=== PATIENT | male | born 1990 | race Caucasian/White ===

== ENCOUNTER 2020-02-07 12:22 | Emergency (ER) | payer BC, SELFPAY ==
[2020-02-07 12:23] VITALS: BP 122/73; PULSE 82; RESP 20; O2SAT 98
[2020-02-07 12:28] VITALS: BP 122/73; PULSE 86; RESP 17; TEMP 37.2; O2SAT 99; BMI 26.9
--- NOTE | 2020-02-07 12:29 | HMH.EDEXTP ---
ED Disposition Clinical Impression: Toe injury Qualifiers: Encounter type: initial encounter Laterality: right Qualified Code(s): S99.921A - Unspecified injury of right foot, initial encounter Disposition: Home, Self-Care Condition on Discharge: Good Instructions: DI for Toe Sprain Referrals: Jared Thompson MD [Staff Physician] - 3 days - Critical Care Critical Care Time: No Attestation: On , the high probability of a clinically significant, sudden or life threatening deterioration of the following system(s) required my full and direct attention, intervention and personal management. The time I documented below is in addition to time spent performing reported procedures but includes the following listed in this critical care notation. Medical Decision Making - Medical Records Medical records reviewed: Yes: I reviewed the patient's medical records. - David Inquiry Pt receiving controlled substance: No Vital Signs: 02/07/20 12:23 02/07/20 12:28 Temperature 98.9 F Temperature Source Oral Pulse Rate [Right Radial] 82 86 Respiratory Rate 20 17 Blood Pressure [Right Arm] 122/73 122/73 Blood Pressure Mean [Right Arm] 89 89 Blood Pressure Source [Right Arm] Automatic Cuff Blood Pressure Position [Right Arm] Sitting 02 Sat by Pulse Oximetry 98 99 Oxygen Delivery Method Room Air Orders (Tests/Meds): ORDERS Category Date Time Status Foot XR right minimum 3 views [XR foot RT min 3V] Stat Exams 02/07/20 12:30 Taken - Radiology Data #1 Image(s): Foot/Toes Image Reviewed: Yes I reviewed the patient's radiology image Preliminary Findings: No Fracture Seen Medical Decision Narrative: No fracture of the right foot/great toe. Given ibuprofen here and recommended RICE therapy, f/u with PCP next week if symptoms are not improving. Return to the emergency department for worsening swelling, numbness, acute new concerns. Extremity Problem HPI - General Stated complaint: AO hit wall injured R foot/toe 02/06/20 Time Seen by Provider: 02/07/20 12:29 Mode of Arrival: Ambulatory Source of Information: Patient Limitations: No Limitations - History of Present Illness HPI Narrative: 30-year-old male with no significant past medical history who presents to the emergency department for pain in the right great toe since yesterday evening when he hit it on a wall. He tried ice, but continued to have pain, swelling and bruising this morning. Pain is worse with ambulation. - Related Data Previous Rx's Medication Instructions Recorded cephalexin 500 mg capsule 500 mg PO Q12H 10 Days #20 cap 05/11/19 Allergies Allergy/AdvReac Type Severity Reaction Status Date / Time INGREDIENT: NO KNOWN - NO Allergy Unknown Uncoded 10/09/17 12:34 KNOWN DRUG ALLERGY [facility] History - Hepatitis A Screen Attestation statement:: This patient has been screened for Hepatitis A risk factors. I have reviewed the patient's past medical history: Yes (Noncontributory) Medical History: Denies:: Diabetes Mellitus Type 1, Seizures Laterality Cases: Bilateral: Tonsillectomy - Social History Smoking Status: Never smoker Alcohol Intake: never Substance Use Type: denies use Occupational Status: employed Family Hx:: No significant family history ROS Obtained: Yes All systems reviewed & no additional complaints Physical Exam - General General appearance: alert, in no apparent distress - Head Head exam: atraumatic, normocephalic - Neck Neck exam: Present: normal inspection, trachea midline - Respiratory Respiratory exam: Absent: respiratory distress - Cardiovascular Cardiovascular exam: Present: regular rate, normal rhythm - Expanded Lower Extremity Exam Right Foot/toe exam: Present: other (Swelling and bruising of the great toe. No subungual hematoma. Capillary refill less than 2 seconds. No obvious deformity. 2+ DP and PT pulses, no metatarsal tenderness) - Neurological E
--- NOTE | 2020-02-07 12:30 | XR_ITS ---
PROCEDURE: XR FOOT RT MIN 3V CLINICAL INDICATION: injury to great toe COMPARISON: No exams were available for comparison FINDINGS: No fracture or dislocation. No lytic or blastic change. There is normal mineralization. There is mild hallux valgus noted in there is mild diffuse soft tissue swelling over the MP joint great toe. The joint spaces are well-preserved. No significant degenerative/arthritic changes. There is a small accessory navicular bone. The plantar arch is normal. No erosive changes evident. Other findings:None. IMPRESSION: Mild hallux valgus, no acute fracture seen Dictated by: Dr. Gabriel Sandoval MD 02/07/2020 15:17 Dr. Gabriel Sandoval MD in [place] 02/07/2020 15:17
[2020-02-07 12:57] VITALS: BP 119/73; PULSE 85; RESP 16; TEMP 37.2; O2SAT 99
== END 2020-02-07 12:57 | disposition home or self-care (01) ==
PROVIDERS: Emergency Provider Emergency Medicine
DX: S99.921A Unspecified injury of right foot, initial encounter (principal); W22.01XA Walked into wall, initial encounter; Z90.09 Acquired absence of other part of head and neck
CPT/HCPCS: 73630; 99282

== ENCOUNTER 2021-09-15 17:06 | Emergency (ER) | payer BC, SELFPAY ==
[2021-09-15 17:50] VITALS: PULSE 71; RESP 22; TEMP 36.9; O2SAT 99; BMI 26.2
--- NOTE | 2021-09-15 18:07 | HMH.EDUTC ---
[facility] [place] Clinical Impression: Abscess of left pinna Disposition: Home, Self-Care Condition on Discharge: Good Instructions: Boil Additional Instructions: Keep the affected area clean and dry. Follow up with your regular doctor. Take the antibiotics as directed and apply the topical antibiotics as directed. Apply warm wet compresses to the affected area three or four times per day. GO TO THE ER FOR ANY WORSENING SYMPTOMS Prescriptions: Sulfamethoxazole/Trimethoprim [Bactrim DS tablet] 1 each PO BID 10 Days #20 tab Transmission Status: Received by [id number] Mupirocin [Bactroban 2% Ointment 22gm tube] 1 applicatio TP TID 7 Days #1 gm Transmission Status: Received by [id number] cephALEXin [cephALEXin 500mg capsule] 500 mg PO Q6H 10 Days #40 cap Transmission Status: Received by [id number] Referrals: Marcial Costa [Primary Care Provider] - Time of Disposition: 18:15 Medical Decision Making - Medical Records Medical records reviewed: No: I reviewed the patient's medical records. - David Inquiry Pt receiving controlled substance: No Vital Signs: 09/15/21 17:50 09/15/21 18:23 Temperature 98.4 F 98.4 F Temperature Source Oral Pulse Rate 71 Pulse Rate [Right] 71 Respiratory Rate 22 22 Blood Pressure 0/0 L 02 Sat by Pulse Oximetry 99 Oxygen Delivery Method Room Air Orders (Tests/Meds): ED MEDICATIONS Discontinued Medications Generic Name Dose Route Start Last Admin Trade Name Freq PRN Reason Stop Dose Admin Ceftriaxone Sodium 1 gm 09/15/21 18:11 09/15/21 18:22 Ceftriaxone 1gm Vial IM 09/15/21 18:12 1 gm ONCE ONE Administration Lidocaine HCl 0 ml 09/15/21 18:11 09/15/21 18:22 Lidocaine 1% 5ml Pf Vial IM 09/15/21 18:12 2 ml ONCE ONE Administration [facility] [place] HPI - General Stated complaint: ear pain Time Seen by Provider: 09/15/21 18:07 Mode of Arrival: Ambulatory Source of Information: Patient Limitations: No Limitations Description of Symptoms (Recalled from Triage Doc. by RN): PATIENT C/O LEFT EAR PAIN AND SWELLING X 2 DAYS HEENT Symptoms (Recalled from RN notes): Yes Resp Symptoms (Recalled from RN notes): No Skin Symptoms (Recalled from RN notes): No MS Symptoms (Recalled from RN notes): No Functional Status (Recalled from RN notes): WNL - History of Present Illness Provider Complaint: He has had swelling of his left external ear for the past 2 days. He states that it is getting worse. He thinks that something bit him or something poked his ear to start this. He denies any fever or chills or other complaints. - Related Data Previous Rx's Medication Instructions Recorded Mupirocin [Bactroban 2% Ointment 1 applicatio TP TID 7 Days #1 gm 09/15/21 22gm tube] Sulfamethoxazole/Trimethoprim 1 each PO BID 10 Days #20 tab 09/15/21 [Bactrim DS tablet] cephALEXin [cephALEXin 500mg 500 mg PO Q6H 10 Days #40 cap 09/15/21 capsule] Allergies Allergy/AdvReac Type Severity Reaction Status Date / Time No Known Allergies Allergy Verified 09/15/21 18:04 - Worker's Comp Is this a Worker's Comp case?: No [facility] History - Hepatitis A Screen Drug use history?: No High risk sexual behaviors?: No History of sexually transmitted infection?: No Currently employed?: No Childcare worker?: No Do you have indoor plumbing?: Yes Do you have electricity?: Yes Attestation statement:: This patient has been screened for Hepatitis A risk factors. I have reviewed the patient's past medical history: Yes Medical History: Denies:: Diabetes Mellitus Type 1, Diabetes Mellitus Type 2, Seizures Laterality Cases: Bilateral: Tonsillectomy - Social History Smoking Status: Never smoker Tobacco Type: smokeless tobacco # Packs/Day (cigarettes): 0 Alcohol Intake: never Alcohol Intake Frequency:: a few times a month Substance Use Type: denies use Occupational Status: other Family Hx:: No significant family
[2021-09-15 18:23] VITALS: BP 0/0; PULSE 71; RESP 22; TEMP 36.9; O2SAT 99
== END 2021-09-15 18:32 | disposition home or self-care (01) ==
PROVIDERS: Emergency Provider Nurse Practitioner Family; PCP Internal Medicine
DX: H60.02 Abscess of left external ear (principal)
CPT/HCPCS: 96372; 99213; G0463; J0696

== ENCOUNTER → 2021-12-01 13:02 | Outpatient (CLI) | payer BC, SELFPAY ==
[2021-12-01 15:36] LABS: Basophils # 0.1 K/mm3 (0-0.2); Basophils % 1.1 % (0.1-2.0); Eosinophils # 0.1 K/mm3 (0.0-0.4); Eosinophils % 1.2 % (0.1-12.0); Hematocrit 48.7 % (42.0-52.0); Hemoglobin 15.9 g/dL (14.1-18.0); Lymphocytes # 1.4 K/mm3 (0.7-4.5); Lymphocytes % 26.4 % (10-50); Mean Corpuscular HGB Conc 32.6 g/dL (31.8-35.4); Mean Corpuscular Hemoglobin 27.5 pg (27.0-31.2); Mean Corpuscular Volume 84.4 fl (80-94); Monocytes # 0.3 K/mm3 (0.1-1.0); Monocytes % 4.8 % (1.7-9.3); Neutrophils # 3.6 K/mm3 (1.8-7.8); Neutrophils % 66.5 % (37.0-80.0); Platelet Count 204 K/mm3 (142-424); Red Blood Count 5.77 M/mm3 (4.60-6.20); Red Cell Distribution Width 13.7 % (11.5-17.5); White Blood Count 5.4 K/mm3 (4.8-10.8)
[2021-12-01 17:17] LABS: Chloride 103 mmol/L (98-107); Sodium 139 mmol/L (136-145)
[2021-12-01 17:18] LABS: Potassium 4.7 mmoL/L (3.5-5.1)
[2021-12-01 17:20] LABS: Alanine Aminotransferase 19 U/L (12-78); Albumin Level 4.5 g/dl (3.5-5.0); Albumin/Globulin Ratio 1.6 (1.1-1.8); Alkaline Phosphatase 60 U/L (38-126); Anion Gap 13.7 mEq/L (5-15); Aspartate Amino Transferase 23 U/L (17-59); Bilirubin,Total 0.4 mg/dl (0.2-1.3); Blood Urea Nitrogen 15 mg/dl (9-20); Calcium 9.7 mg/dl (8.4-10.2); Carbon Dioxide 27 mmol/L (22.0-30.0); Cholesterol 175 mg/dl (140-200); Estimated Glomerular Filt Rate 98 ml/min (>60); GFR (African American) 119 ML/MIN (>60); Globulin 2.8 g/dL (1.3-3.2); Glucose 84 mg/dl (74-100); Total Protein,Serum 7.3 g/dl (6.3-8.2); Triglycerides 133 mg/dl (30-150); VLDL Cholesterol 27 mg/dL (0-40)
[2021-12-01 17:21] LABS: Chol/HDL Ratio 5.6 (1-3.5); HDL Cholesterol 31 mg/dl (40-60); Magnesium 1.7 mg/dl (1.6-2.3)
[2021-12-01 17:31] LABS: Direct LDL Cholesterol 114.37 mg/dL (100-129)
== END ==
PROVIDERS: PCP Internal Medicine; Visit Provider Internal Medicine
DX: E78.5 Hyperlipidemia, unspecified (principal); Z82.49 Family history of ischemic heart disease and other diseases of the circulatory system; Z82.41 Family history of sudden cardiac death
CPT/HCPCS: 80053; 80061; 83735; 85025

== ENCOUNTER → 2021-12-06 15:19 | Outpatient (CLI) | payer BC, SELFPAY | PROVIDERS: PCP Internal Medicine; Visit Provider Nurse Practitioner Family | DX: R94.31 Abnormal electrocardiogram [ECG] [EKG] (principal); Z72.0 Tobacco use; Z82.49 Family history of ischemic heart disease and other diseases of the circulatory system | CPT/HCPCS: 93270 ==